=== PATIENT | female | born 1975 | race Caucasian/White ===

== ENCOUNTER 2017-10-04 08:59 | Inpatient (IN) ==
--- NOTE | 2017-10-04 09:23 | Emergency Department Note ---
Disposition Clinical Impression: Pancreatitis Qualifiers: Chronicity: acute Pancreatitis type: unspecified pancreatitis type Acute pancreatitis complication: unspecified Qualified Code(s): K85.90 - Acute pancreatitis without necrosis or infection, unspecified Disposition: Admitted As Inpatient Condition: Good Referrals: Francis Oneal DO [Primary Care Provider] - Forms: ED Satisfaction Letter, Work/School Release Time of Disposition: 10:50 Abdominal Pain HPI - General Chief Complaint: ED Abdominal Pain Stated Complaint: RUQ pain Time Seen by Provider: 10/04/17 09:07 Source: patient Mode of arrival: ambulatory Limitations: no limitations Nursing Notes Reviewed: Yes Vital Signs Reviewed: Yes - History of Present Illness HPI Narrative: 42-year-old female comes in complaining of right upper quadrant pain patient is status post gastric sleeve conrad placement in the last couple weeks in [place]. She complains of pain in right upper quadrant going through to her back. She was seen at the urgent care they did an x-ray and told her she had a kidney stone. Pt Subjective Complaint: abdominal pain Onset (ago): day(s) Consistency: constant Location: RUQ Pain Severity: moderate Pain Scale: 6 Quality: aching Radiation: back Migration to: no migration Improves with: nothing Worsens with: nothing Associated symptoms: Reports: nausea Treatments prior to arrival: none - Related Data Home Medications Medication Instructions Recorded Confirmed Losartan/Hydrochlorothiazide 1 tab PO DAILY 04/11/17 10/04/17 [Losartan-Hctz 100-25 mg Tab] amLODIPine [Norvasc] 5 mg PO DAILY 10/01/17 10/04/17 Cetirizine HCl [24Hour Allergy] 10 mg PO DAILY 10/04/17 10/04/17 Omeprazole [PriLOSEC] 40 mg PO DAILY 10/04/17 10/04/17 Allergies Allergy/AdvReac Type Severity Reaction Status Date / Time lisinopril AdvReac Cough Verified 10/04/17 11:05 All systems ED: reviewed and negative except as stated. Constitutional: Denies: fever, chills, weakness, weight change Eyes: Denies: eye pain, eye discharge, vision change ENT ED: Denies: ear pain, throat pain, dental pain, hearing loss, epistaxis, congestion, dysphagia Cardiovascular: Denies: chest pain, palpitations, dyspnea on exertion, edema, syncope Respiratory: Denies: cough, dyspnea, wheezes, hemoptysis, stridor Gastrointestinal: Reports: abdominal pain. Denies: nausea, vomiting, diarrhea, constipation, hematemesis, melena, hematochezia Genitourinary: Denies: dysuria, frequency, hematuria, discharge Musculoskeletal: Denies: back pain, neck pain, arthralgia, myalgia Integumentary: Denies: rash, abrasion, lesions Neurological: Denies: headache, weakness, numbness, paresthesias, confusion, abnormal gait, vertigo Psychiatric: Denies: anxiety, depression, suicidal thoughts, homicidal thoughts , auditory hallucinations, visual hallucinations Endocrine: Denies: fatigue Hematological/Lymphatic: Denies: easy bleeding, easy bruising Allergic/Immunologic: Denies: facial swelling, urticaria Abdominal Pain PMH - Past Medical History Medical history: Reports: GERD, hypertension Female Surgical History: Reports: , other Psychiatric history: Reports: no psych history - Social History Smoking status: Never smoker Alcohol use: Reports: none Drug use: Reports: none Physical Exam - General Limitations: no limitations General appearance: alert, in no apparent distress - Head Head exam: atraumatic, normocephalic, normal inspection - Eye Eye exam: Present: normal appearance, PERRL, EOMI - ENT ENT exam: normal exam, normal oropharynx, mucous membranes moist - Neck Neck exam: Present: normal inspection, full ROM, trachea midline - Chest Chest inspection: Present: normal inspection, symmetric chest wall rise - Respiratory Respiratory exam: Present: normal lung sounds bilaterally - Cardiovascular Cardiovascular exam: Present: regular rate, normal rhythm, normal heart sounds - Abdominal Exam Abdominal exam: Present: soft, tenderness. Absent: guarding, rebound Abdominal tenderness: Present: RUQ - Extremities Exam Extremities exam: Present: normal inspection, full ROM. Absent: tenderness, pedal edema - Expanded Lower Extremity Exam Neurovascular/Tendon exam: Absent: motor deficit, sensory deficit, tendon deficit Gait: observed and normal - Back Exam Back exam: Present: normal inspection, full ROM. Absent: tenderness - Neurological Exam Neurological exam: Present: alert, oriented X3 - Psychiatric Psychiatric exam: Present: normal affect, normal mood - Skin Skin exam: Present: warm, dry, intact, normal color Course - Reevaluation(s) Reevaluation #1: 42-year-old with a vertical sleeve gastrectomy a week ago. Comes in with right upper quadrant epigastric discomfort. CT shows evidence of pancreatitis. Will be admitted here. Time: 11:35 - Consultations Consultation #1: Discussed with Dr. Suarez, admit Time: 10:47 Consultation #2: Discussed with Dr. Eaton, surgeon in [place] at [phone]. Comfortable having the patient admitted here but will be available for consultation and/or transfer if the condition warrant. Time: 11:33 Vital Signs Temperature 98.2 F 10/04/17 09:01 Pulse Rate 102 10/04/17 09:01 Respiratory Rate 18 10/04/17 09:01 Blood Pressure 137/89 10/04/17 09:01 O2 Sat by Pulse Oximetry 96 10/04/17 09:01 Temperature 98.2 F 10/04/17 09:01 Pulse Rate 98 10/04/17 10:32 Respiratory Rate 17 10/04/17 10:32 Blood Pressure 145/93 10/04/17 10:32 O2 Sat by Pulse Oximetry 97 10/04/17 10:32 Oxygen Delivery Oxygen Delivery Room Air Abdominal Pain - Lab Data Result diagrams: 10/04/17 09:20 10/04/17 10:27 Lab Results 10/04/17 10/04/17 10/04/17 Range/Units 09:19 09:20 09:20 WBC 12.4 H (4.3-11.1) K/mcL RBC 4.17 (3.82-4.97) M/mcL Hgb 10.8 L (11.5-15.4) g/dL Hct 33.6 L (35.3-44.9) % MCV 80.6 L (83.0-100.0) fL MCH 25.9 L (28.0-33.3) pg MCHC 32.1 (31.6-35.5) g/dL RDW 16.1 H (11.5-14.5) % Plt Count 319 (140-400) K/mcL MPV 9.0 L (9.4-12.4) fL Immature Gran % 0.3 (0-4) % Seg Neutrophils % 78.8 % Lymphocytes % 10.8 % Monocytes % 8.2 % Eosinophils % 1.5 % Basophils % 0.4 % Neutrophils # 9.8 H (1.6-8.9) K/mcL Lymphocytes # 1.3 (0.6-4.6) K/mcL Monocytes # 1.0 (0.0-1.3) K/mcL Eosinophils # 0.2 (0.0-0.6) K/mcL Basophils # 0.1 (0.0-0.2) K/mcL Sodium (136-145) mEq/L Potassium (3.5-5.1) mEq/L Chloride (98-107) mEq/L Carbon Dioxide (23-29) mEq/L BUN (6-20) mg/dL Creatinine (0.60-1.20) mg/dL Est GFR ( Amer) (> 60) Est GFR (Non-Af Amer) (> 60) BUN/Creatinine Ratio (6-26) Glucose (70-105) mg/dL Calculated Osmolality (280-300) Lactic Acid (0.5-2.2) mmol/L Calcium (8.6-10.3) mg/dL Total Bilirubin (0.3-1.0) mg/dL Direct Bilirubin (0.0-0.2) mg/dL Indirect Bilirubin (0.0-1.2) mg/dL AST (13-39) Units/L ALT (7-52) Units/L Alkaline Phosphatase (34-104) Units/L Troponin I 0.03 (< 0.04) ng/mL Serum Total Protein (6.4-8.9) g/dL Albumin (3.5-5.7) g/dL Globulin (2.4-3.5) g/dL Albumin/Globulin Ratio (1.1-2.2) Amylase 26 L (29-103) Units/L Lipase 83 H (11-82) Units/L Urine Color (Yellow) Urine Clarity (Clear) Urine pH (5.0-8.0) pH Units Ur Specific [place] (1.010-1.025) Urine Protein (Neg-Trace) mg/dL Urine Glucose (UA) (Normal) mg/dL Urine Ketones (Negative) mg/dL Urine Blood (Negative) Urine Nitrite (Negative) Urine Bilirubin (Negative) Urine Urobilinogen (Normal) mg/dL Ur Leukocyte Esterase (Negative) Urine Microscopic RBC (0-3) per hpf Urine Microscopic WBC (0-3) per hpf Ur Squamous Epith Cells (None-Few) per lpf Urine Bacteria (None-Few) per hpf Hyaline Casts Ur Culture Indicated? (NO) Specimen Rejected 10/04/17 10/04/17 10/04/17 Range/Units 09:20 09:46 09:46 WBC (4.3-11.1) K/mcL RBC (3.82-4.97) M/mcL Hgb (11.5-15.4) g/dL Hct (35.3-44.9) % MCV (83.0-100.0) fL MCH (28.0-33.3) pg MCHC (31.6-35.5) g/dL RDW (11.5-14.5) % Plt Count (140-400) K/mcL MPV (9.4-12.4) fL Immature Gran % (0-4) % Seg Neutrophils % % Lymphocytes % % Monocytes % % Eosinophils % % Basophils % % Neutrophils # (1.6-8.9) K/mcL Lymphocytes # (0.6-4.6) K/mcL Monocytes # (0.0-1.3) K/mcL Eosinophils # (0.0-0.6) K/mcL Basophils # (0.0-0.2) K/mcL Sodium (136-145) mEq/L Potassium (3.5-5.1) mEq/L Chloride (98-107) mEq/L Carbon Dioxide (23-29) mEq/L BUN (6-20) mg/dL Creatinine (0.60-1.20) mg/dL Est GFR ( Amer) (> 60) Est GFR (Non-Af Amer) (> 60) BUN/Creatinine Ratio (6-26) Glucose (70-105) mg/dL Calculated Osmolality (280-300) Lactic Acid 1.0 (0.5-2.2) mmol/L Calcium (8.6-10.3) mg/dL Total Bilirubin (0.3-1.0) mg/dL Direct Bilirubin (0.0-0.2) mg/dL Indirect Bilirubin (0.0-1.2) mg/dL AST (13-39) Units/L ALT (7-52) Units/L Alkaline Phosphatase (34-104) Units/L Troponin I (< 0.04) ng/mL Serum Total Protein (6.4-8.9) g/dL Albumin (3.5-5.7) g/dL Globulin (2.4-3.5) g/dL Albumin/Globulin Ratio (1.1-2.2) Amylase (29-103) Units/L Lipase (11-82) Units/L Urine Color Dark Yellow (Yellow) Urine Clarity Hazy A (Clear) Urine pH 6.0 (5.0-8.0) pH Units Ur Specific [place] > 1.030 H (1.010-1.025) Urine Protein 30 H (Neg-Trace) mg/dL Urine Glucose (UA) Normal (Normal) mg/dL Urine Ketones >=160 H (Negative) mg/dL Urine Blood Negative (Negative) Urine Nitrite Negative (Negative) Urine Bilirubin Moderate H (Negative) Urine Urobilinogen Normal (Normal) mg/dL Ur Leukocyte Esterase Negative (Negative) Urine Microscopic RBC 5-15 H (0-3) per hpf Urine Microscopic WBC 5-15 H (0-3) per hpf Ur Squamous Epith Cells Many H (None-Few) per lpf Urine Bacteria Many H (None-Few) per hpf Hyaline Casts Test Not Performed Ur Culture Indicated? NO (NO) Specimen Rejected Hemolyzed 10/04/17 Range/Units 10:27 WBC (4.3-11.1) K/mcL RBC (3.82-4.97) M/mcL Hgb (11.5-15.4) g/dL Hct (35.3-44.9) % MCV (83.0-100.0) fL MCH (28.0-33.3) pg MCHC (31.6-35.5) g/dL RDW (11.5-14.5) % Plt Count (140-400) K/mcL MPV (9.4-12.4) fL Immature Gran % (0-4) % Seg Neutrophils % % Lymphocytes % % Monocytes % % Eosinophils % % Basophils % % Neutrophils # (1.6-8.9) K/mcL Lymphocytes # (0.6-4.6) K/mcL Monocytes # (0.0-1.3) K/mcL Eosinophils # (0.0-0.6) K/mcL Basophils # (0.0-0.2) K/mcL Sodium 136 (136-145) mEq/L Potassium 3.0 L (3.5-5.1) mEq/L Chloride 98 (98-107) mEq/L Carbon Dioxide 27 (23-29) mEq/L BUN 10 (6-20) mg/dL Creatinine 0.59 L (0.60-1.20) mg/dL Est GFR ( Amer) > 60 (> 60) Est GFR (Non-Af Amer) > 60 (> 60) BUN/Creatinine Ratio 17 (6-26) Glucose 100 (70-105) mg/dL Calculated Osmolality 281 (280-300) Lactic Acid (0.5-2.2) mmol/L Calcium 9.3 (8.6-10.3) mg/dL Total Bilirubin 0.4 (0.3-1.0) mg/dL Direct Bilirubin 0.2 (0.0-0.2) mg/dL Indirect Bilirubin 0.2 (0.0-1.2) mg/dL AST 15 (13-39) Units/L ALT 23 (7-52) Units/L Alkaline Phosphatase 83 (34-104) Units/L Troponin I (< 0.04) ng/mL Serum Total Protein 7.1 (6.4-8.9) g/dL Albumin 3.8 (3.5-5.7) g/dL Globulin 3.3 (2.4-3.5) g/dL Albumin/Globulin Ratio 1.2 (1.1-2.2) Amylase (29-103) Units/L Lipase (11-82) Units/L Urine Color (Yellow) Urine Clarity (Clear) Urine pH (5.0-8.0) pH Units Ur Specific [place] (1.010-1.025) Urine Protein (Neg-Trace) mg/dL Urine Glucose (UA) (Normal) mg/dL Urine Ketones (Negative) mg/dL Urine Blood (Negative) Urine Nitrite (Negative) Urine Bilirubin (Negative) Urine Urobilinogen (Normal) mg/dL Ur Leukocyte Esterase (Negative) Urine Microscopic RBC (0-3) per hpf Urine Microscopic WBC (0-3) per hpf Ur Squamous Epith Cells (None-Few) per lpf Urine Bacteria (None-Few) per hpf Hyaline Casts Ur Culture Indicated? (NO) Specimen Rejected - EKG Data EKG attestation: Yes I reviewed and interpreted this EKG. EKG shows normal: sinus rhythm Rate: normal Rhythm: NSR [place]/QRS: normal Interpretation: no acute changes
[2017-10-04 09:53] LABS: Bilirubin,Urine Moderate (Negative); Blood,Urine Negative (Negative); Color,Urine Dark Yellow (Yellow); Glucose,Urine (UA) Normal (Normal); Ketones,Urine >=160 mg/dL (Negative); Leukocyte Esterase,Urine Negative (Negative); Nitrite,Urine Negative (Negative); Protein,Urine 30 mg/dL (Neg-Trace); Specific Gravity,Urine > 1.030 (1.010-1.025); Urobilinogen,Urine Normal (Normal)
[2017-10-04 09:56] LABS: Bacteria,Urine Many per hpf (None-Few); Squamous Epithelial Cell,Urine Many per lpf (None-Few)
[2017-10-04 10:02] LABS: Clarity,Urine Hazy (Clear)
[2017-10-04 10:04] LABS: Basophils # 0.1 K/mcL (0.0-0.2); Basophils % 0.4 %; Eosinophils # 0.2 K/mcL (0.0-0.6); Eosinophils % 1.5 %; Hematocrit 33.6 % (35.3-44.9); Hemoglobin 10.8 g/dL (11.5-15.4); Immature Granulocytes % 0.3 % (0-4); Lymphocytes # 1.3 K/mcL (0.6-4.6); Lymphocytes % 10.8 %; Mean Corpuscular HGB Conc 32.1 g/dL (31.6-35.5); Mean Corpuscular Hemoglobin 25.9 pg (28.0-33.3); Mean Corpuscular Volume 80.6 fL (83.0-100.0); Monocytes % 8.2 %; Neutrophils # 9.8 K/mcL (1.6-8.9); Platelet Count 319 K/mcL (140-400); Red Blood Count 4.17 M/mcL (3.82-4.97); Red Cell Distribution Width 16.1 % (11.5-14.5); Segmented Neutrophils % 78.8 %
[2017-10-04 10:22] LABS: Amylase 26 Units/L (29-103); Lipase 83 Units/L (11-82)
[2017-10-04 11:00] LABS: Alanine Aminotransferase 23 Units/L (7-52); Albumin 3.8 g/dL (3.5-5.7); Albumin/Globulin Ratio 1.2 (1.1-2.2); Alkaline Phosphatase 83 Units/L (34-104); Aspartate Amino Transferase 15 Units/L (13-39); BUN/Creatinine Ratio 17 (6-26); Bilirubin,Direct 0.2 mg/dL (0.0-0.2); Bilirubin,Indirect 0.2 mg/dL (0.0-1.2); Bilirubin,Total 0.4 mg/dL (0.3-1.0); Blood Urea Nitrogen 10 mg/dL (6-20); Calcium 9.3 mg/dL (8.6-10.3); Carbon Dioxide 27 mEq/L (23-29); Chloride 98 mEq/L (98-107); Globulin 3.3 g/dL (2.4-3.5); Glucose 100 mg/dL (70-105); Osmolality,Calculated 281 (280-300); Sodium 136 mEq/L (136-145); Total Protein 7.1 g/dL (6.4-8.9); eGFR For African Americans > 60 (> 60); eGFR For Non-African Americans > 60 (> 60)
[2017-10-04] MEDS ORDERED: *HR* HYDROcodone/Acet 5/325 mg TABLET PO ONE (11:46)
[2017-10-04] MEDS ORDERED: Ondansetron ODT 4 MG TAB.RAPDIS SL ONE (11:46)
[2017-10-04] MEDS ORDERED: Naloxone 0.4 MG/ML INJ IVP PRN (12:21)
[2017-10-04] MEDS ORDERED: Ondansetron 4 MG/2 ML VIAL IVP PRN (12:37)
[2017-10-04] MEDS ORDERED: *HR* OxyCODONE Immed Rel 5 MG TABLET PO PRN (12:37)
[2017-10-04] MEDS ORDERED: *HR* Promethazine 25 MG/ML VIAL IVP PRN (12:37)
--- NOTE | 2017-10-04 12:56 | Internal Med History&Physical ---
Date of Encounter: 10/04/17 Time of Encounter: 11:25 Internal Medicine - H&P: HPI Chief complaint: RUQ pain Admitted From: Emergency Dept Plans for Post Hospital Care: Home History of present illness: Ms. Mari is a 42 year old female who presents with a 2 to 3-day history of epigastric and right upper quadrant abdominal pain radiating to her flank on the right side. She has had some protracted nausea and occasional vomiting. She has been unable to eat or drink due to the pain and nausea. She was seen in urgent care and was felt to have a kidney stone. However, because of worsening symptoms and persistent pain, she came to the ER. In the ER, she was diagnosed with pancreatitis by laboratory analysis and imaging. She was then admitted to the hospitalist service. Upon my assessment of the patient in the ER, she is feeling a lot better after some pain medication. She still has some pain rating to her right flank from her right upper quadrant. Of note, patient had recent gastric sleeve surgery in [place]. Dr. Kemp called her primary surgeon at [place] to inquire whether this pancreatitis may be secondary to her surgery. It was felt that it was likely not related to her surgery but her surgeon left his name name and number with Dr. Kemp to call with any questions and transfer if necessary. Gallbladder ultrasound was done in the ER and was unremarkable. Patient does not drink any alcohol whatsoever. I reviewed her medications and suspected Hydrochlorothiazide may be possible culprit for her pancreatitis. Additionally , she has never had her cholesterol level checked. Family history is pertinent for hyperlipidemia and she believes also for hypertriglyceridemia as well. I discussed with her the standard care treatment of pancreatitis with conservative measures including nothing by mouth, IV fluids, pain control, nausea control. Meanwhile, we will seek the etiology of her pancreatitis and consult GI best if necessary. She may warrant EGD given her chronic GERD. She is agreeable to the plan of care. Past Med Surg Social Fam HX - Past Medical History Attestation: Yes The following information was validated with the patient. Source: patient, old records reviewed Medical history: GERD, hypertension Psychiatric history: no psych history - Past Surgical History Surgical History: other (gastric sleeve; hiatal hernia) - Social History Smoking Status: Never smoker Smokeless Tobacco Status: No Alcohol use: none Drug use: none Occupational status: employed Current living situation: Home, With Family Activity Level: Independent ambulation Recent Out of Country Travel Within the Last 8 Weeks: No - Family History Mother Living Status: Still Living Father Living Status: Still Living (+FH hyperlipidemia and TG) Internal Medicine - H&P: Meds Losartan/Hydrochlorothiazide [Losartan-Hctz 100-25 mg Tab] 1 tab PO DAILY [History] amLODIPine [Norvasc] 5 mg PO DAILY 10/01/17 [History] Cetirizine HCl [24Hour Allergy] 10 mg PO DAILY 10/04/17 [History] Omeprazole [PriLOSEC] 40 mg PO DAILY 10/04/17 [History] 3 Allergy/AdvReac Type Severity Reaction Status Date / Time lisinopril AdvReac Cough Verified 10/04/17 11:05 All Systems PM: A 10-system review of systems was performed and is negative for pertinent findings except as documented above in the HPI. - Constitutional Constitutional: no chills, no fever(s), no night sweats - EENT Eyes: no blurry vision, no change in vision Ears: no ear pain, no tinnitus Nose, mouth and throat: no nasal congestion, no nasal discharge, no sinus pressure, no sore throat - Cardiovascular Cardiovascular ROS IM: no chest pain, no dyspnea, no orthopnea, no palpitations , no syncope - Respiratory Respiratory: no cough, no dyspnea, no hemoptysis, no dyspnea on exertion, no wheezing, no chest congestion, no excessive phlegm production, no change in phlegm color - Gastrointestinal Gastrointestinal: abdominal pain (RUQ), belching, heartburn, nausea, vomiting, no diarrhea, no hematemesis, no hematochezia, no melena - Genitourinary Genitourinary: no dysuria, no flank pain, no hematuria - Musculoskeletal Musculoskeletal ROS IM: no arthralgias, no joint swelling, no limited range of motion - Integumentary Integumentary IM: no rash, no jaundice - Neurological Neurological ROS: no dizziness, no focal weakness, no frequent falls, no headache(s) - Psychiatric Psychiatric: no anxiety, no depression - Endocrine Endocrine IM: no polydipsia, no polyuria - Hematologic/Lymphatic Hematologic/Lymphatic: no easy bruising - Allergic/Immunologic Allergic/Immunologic: GI upset with certain foods, no wheezing - Constitutional Vitals: Temp Pulse Resp BP Pulse Ox 98.2 F 98 17 149/92 97 10/04/17 09:01 10/04/17 12:05 10/04/17 12:05 10/04/17 12:05 10/04/17 12:05 General appearance: Present: cooperative, mild distress, A&O X 3, pleasant, answers questions appropriately - Head Head exam: Present: atraumatic, normal inspection - Eye Eye exam: Present: EOMI, normal appearance, PERRL. Absent: scleral icterus Pupils: Present: normal accommodation - ENT ENT exam: Present: mucous membranes dry, normal exam, normal oropharynx - Neck Neck exam general surgery: Present: full ROM, normal inspection, supple. Absent : tenderness, nuchal rigidity, thyromegaly - Respiratory Respiratory exam: Present: CTAB. Absent: chest wall tenderness, rales, respiratory distress, rhonchi, wheezes - Cardiovascular Cardiovascular exam: Present: RRR, +S1, +S2. Absent: diastolic murmur, systolic murmur - GI/Abdominal GI/Abdominal exam: Present: soft, tenderness (epigastric and RUQ), no peritoneal signs. Absent: guarding, hepatomegaly, mass, rebound, splenomegaly - Extremities Exam Extremities exam: Present: full ROM, normal capillary refill, warm, radial pulses palpable and symmetrical. Absent: calf tenderness, joint swelling, pedal edema, tenderness - Back Exam Back exam: Present: CVA tenderness (R) (referred pain from RUQ), normal inspection. Absent: CVA tenderness (L) - Neurological Exam Neurological exam: Present: alert, CN II-XII intact, oriented X3, no focal deficits, strengths equal and symetr throughout - Psychiatric Psychiatric exam: Present: normal affect, normal mood - Skin Skin exam: Present: dry, warm. Absent: rash Internal Med - H&P Results - Labs CBC & Chem 7: 10/04/17 09:20 10/04/17 10:27 - Diagnostic Studies CT scan - abdomen Status: image reviewed by me (pancreatitis) - Assessment and plan (1) Pancreatitis Current Visit: Yes Status: Acute Assessment and plan: 1. Suspect HCTZ as possible culprit for pancreatitis +/- hyperlipidemia. 2. Will keep npo, on IVF, nausea and pain control. 3. May need EGD for evaluation if above work-up negative. 4. If there is concern for post-operative complication of her gastric sleeve surgery, recommend contacting her surgeon in [place] as documented by Dr. Kemp in ER. Qualifiers: Chronicity: acute Pancreatitis type: unspecified pancreatitis type Acute pancreatitis complication: unspecified Qualified Code(s): K85.90 - Acute pancreatitis without necrosis or infection, unspecified (2) Chronic GERD Current Visit: Yes Status: Chronic Assessment and plan: 1. Will place on IV PPI. 2. Consult GI if need for EGD and poor symptom control. (3) Hypertension Current Visit: Yes Status: Chronic Assessment and plan: 1. Continue home meds but hold HCTZ because of pancreatitis. 2. Monitor BP and adjust meds as necessary. Qualifiers: Hypertension type: essential hypertension Qualified Code(s): I10 - Essential (primary) hypertension (4) DVT prophylaxis Current Visit: Yes Status: Acute Assessment and plan: 1. Heparin SQ.
[2017-10-04] MEDS: 0.9 % Sodium Chloride w KCl 20 MEQ/1,000 ML MLS IVC SCH ×2 (13:12→22:37)
[2017-10-04] MEDS: Pantoprazole 40 MG VIAL IVP SCH ×2 (13:12→18:01)
[2017-10-04] MEDS: *HR* HYDROcodone/Acet 5/325 mg TABLET PO PRN ×2 (16:30→22:37)
[2017-10-04] MEDS: *HR* Heparin 5,000 UNIT/ML VIAL SQ SCH (18:01)
[2017-10-05 06:16] LABS: Alanine Aminotransferase 16 Units/L (7-52); Albumin 3.2 g/dL (3.5-5.7); Albumin/Globulin Ratio 1.1 (1.1-2.2); Alkaline Phosphatase 70 Units/L (34-104); Aspartate Amino Transferase 12 Units/L (13-39); BUN/Creatinine Ratio 14 (6-26); Bilirubin,Total 0.4 mg/dL (0.3-1.0); Blood Urea Nitrogen 7 mg/dL (6-20); Calcium 8.6 mg/dL (8.6-10.3); Carbon Dioxide 23 mEq/L (23-29); Chloride 103 mEq/L (98-107); Chol/HDL Ratio 3.2 (0-4.9); Cholesterol 122 mg/dL (< 200); Glucose 86 mg/dL (70-105); HDL Cholesterol 38 mg/dL (40-59); LDL Cholesterol,Calculated 70 mg/dL (0-99); Magnesium 1.8 mg/dL (1.6-2.6); Osmolality,Calculated 283 (280-300); Potassium 3.4 mEq/L (3.5-5.1); Sodium 138 mEq/L (136-145); Total Protein 6.2 g/dL (6.4-8.9); Triglycerides 68 mg/dL (< 150); eGFR For African Americans > 60 (> 60); eGFR For Non-African Americans > 60 (> 60)
[2017-10-05 06:17] LABS: Basophils % 0.4 %; Eosinophils # 0.2 K/mcL (0.0-0.6); Eosinophils % 1.6 %; Hematocrit 30.5 % (35.3-44.9); Hemoglobin 9.6 g/dL (11.5-15.4); Immature Granulocytes % 0.3 % (0-4); Lymphocytes # 1.3 K/mcL (0.6-4.6); Lymphocytes % 12.7 %; Mean Corpuscular HGB Conc 31.5 g/dL (31.6-35.5); Mean Corpuscular Volume 82.7 fL (83.0-100.0); Mean Platelet Volume 9.3 fL (9.4-12.4); Monocytes # 0.8 K/mcL (0.0-1.3); Monocytes % 7.4 %; Neutrophils # 7.8 K/mcL (1.6-8.9); Platelet Count 271 K/mcL (140-400); Red Blood Count 3.69 M/mcL (3.82-4.97); Red Cell Distribution Width 16.3 % (11.5-14.5); Segmented Neutrophils % 77.6 %
[2017-10-05 06:22] LABS: INR 1.5; Prothrombin Time 16.4 Seconds (9.4-12.1)
[2017-10-05 06:25] LABS: Activated Partial Thrombo Time 28.6 Seconds (26.0-36.0)
[2017-10-05] MEDS: *HR* Heparin 5,000 UNIT/ML VIAL SQ SCH ×2 (06:42→17:45)
[2017-10-05] MEDS: Pantoprazole 40 MG VIAL IVP SCH ×2 (06:43→17:45)
[2017-10-05] MEDS: *HR* HYDROcodone/Acet 5/325 mg TABLET PO PRN ×3 (06:51→20:18)
[2017-10-05] MEDS: amLODIPine 5 MG TABLET PO SCH (08:18)
[2017-10-05] MEDS ORDERED: Bisacodyl 10 MG RECTAL SUPPOSITORY RC PRN (15:24)
[2017-10-05] MEDS ORDERED: Lidocaine -MPF 1% 5 ML AMPUL INFILT ONE (15:59)
[2017-10-05] MEDS: 0.9 % Sodium Chloride 1,000 ML IVC SCH ×2 (16:10→21:08)
--- NOTE | 2017-10-05 17:03 | Internal Med Progress Note ---
Date of Encounter: 10/05/17 Time of Encounter: 11:00 - Assessment and plan (1) Abdominal pain Current Visit: Yes Status: Acute Assessment and plan: Patient reports of no improvement in her generalized abdominal discomfort more concentrated at the epigastric region Patient without leukocytosis and has been afebrile with normal LFTs and slightly elevated lipase Patient with recent gastric sleeve on 09/15/[address] [facility] ( Dr. Keith Blankenship ) Patient also reports issues with constipation GI has been consulted and appreciate recommendations Qualifiers: Abdominal location: generalized Qualified Code(s): R10.84 - Generalized abdominal pain (2) Pancreatitis Current Visit: Yes Status: Acute Assessment and plan: Lipase on admission was [address] of the abdomen/pelvis showed findings consistent with acute pancreatitis with trace free fluid in the mid abdomen likely reactive in etiology. Will continue to hold hydrochlorothiazide and keep patient nothing by mouth with fluid resuscitation. GI following as above and appreciate recommendations Qualifiers: Chronicity: acute Pancreatitis type: unspecified pancreatitis type Acute pancreatitis complication: unspecified Qualified Code(s): K85.90 - Acute pancreatitis without necrosis or infection, unspecified (3) Constipation Current Visit: Yes Status: Acute Assessment and plan: Patient given MiraLAX earlier with no relief in symptoms so will try Dulcolax suppository Qualifiers: Constipation type: unspecified constipation type Qualified Code(s): K59.00 - Constipation, unspecified (4) Chronic GERD Current Visit: Yes Status: Chronic Assessment and plan: Will continue IV Protonix in case symptoms related to GERD Unclear if EGD warranted Appreciate any further recommendations from GI (5) Hypertension Current Visit: Yes Status: Chronic Assessment and plan: Continue home dose of amlodipine but hold HCTZ because of pancreatitis. Monitor BP Qualifiers: Hypertension type: essential hypertension Qualified Code(s): I10 - Essential (primary) hypertension (6) DVT prophylaxis Current Visit: Yes Status: Acute Assessment and plan: Subcutaneous heparin - Time Spent With Patient Total time spent is greater than 50% in coordination of care (as documented) at patient's floor/unit and/or counseling patient: - Subjective Interval history: Patient reports of no improvement in her generalized abdominal discomfort more concentrated at the epigastric region Patient without leukocytosis and has been afebrile with normal LFTs and slightly elevated lipase - Constitutional Vitals: Temp Pulse Resp BP Pulse Ox 98.8 F 89 17 108/70 98 10/05/17 15:16 10/05/17 15:16 10/05/17 15:16 10/05/17 15:16 10/05/17 15:16 General appearance: Present: cooperative, mild distress, A&O X 3, pleasant, answers questions appropriately. Absent: no acute distress - Respiratory Respiratory exam: Present: CTAB. Absent: accessory muscle use, rales, rhonchi, wheezes - Cardiovascular Cardiovascular exam: Present: RRR, +S1, +S2. Absent: diastolic murmur, gallop, rubs, systolic murmur - GI/Abdominal GI/Abdominal exam: Present: soft, tenderness (Generalized tenderness more pronounced at the epigastric region). Absent: distended, guarding, rigid Internal Medicine: Result - Labs CBC & Chem 7: 10/05/17 05:36 10/05/17 05:36 Labs: Short CBC 10/05/17 Range/Units 05:36 WBC 10.1 (4.3-11.1) K/mcL Hgb 9.6 L (11.5-15.4) g/dL Hct 30.5 L (35.3-44.9) % Plt Count 271 (140-400) K/mcL Neutrophils # 7.8 (1.6-8.9) K/mcL BMP 10/05/17 05:36 Sodium 138 Potassium 3.4 L Chloride 103 Carbon Dioxide 23 BUN 7 Creatinine 0.50 L Glucose 86 Calcium 8.6 Liver Function 10/05/17 Range/Units 05:36 Total Bilirubin 0.4 (0.3-1.0) mg/dL AST 12 L (13-39) Units/L ALT 16 (7-52) Units/L Alkaline Phosphatase 70 (34-104) Units/L Albumin 3.2 L (3.5-5.7) g/dL - ABG Interpretation ABG results: PT/INR, D-dimer PT 16.4 Seconds (9.4-12.1) H 10/05/17 05:36 Consult Discharge Plan - Plan Referrals: Francis Oneal DO [Primary Care Provider] -
[2017-10-06] MEDS: *HR* HYDROcodone/Acet 5/325 mg TABLET PO PRN ×4 (02:28→21:14)
[2017-10-06] MEDS: 0.9 % Sodium Chloride 1,000 ML IVC SCH ×4 (02:29→20:06)
[2017-10-06] MEDS: Pantoprazole 40 MG VIAL IVP SCH ×2 (06:14→18:25)
[2017-10-06] MEDS: *HR* Heparin 5,000 UNIT/ML VIAL SQ SCH (06:14)
[2017-10-06] MEDS: amLODIPine 5 MG TABLET PO SCH (09:04)
[2017-10-06 12:00] LABS: Basophils % 0.3 %; Eosinophils # 0.1 K/mcL (0.0-0.6); Eosinophils % 1.5 %; Hemoglobin 8.8 g/dL (11.5-15.4); Immature Granulocytes % 0.2 % (0-4); Lymphocytes # 1.2 K/mcL (0.6-4.6); Lymphocytes % 13.6 %; Mean Corpuscular HGB Conc 31.4 g/dL (31.6-35.5); Mean Corpuscular Hemoglobin 25.7 pg (28.0-33.3); Mean Corpuscular Volume 81.6 fL (83.0-100.0); Mean Platelet Volume 9.2 fL (9.4-12.4); Monocytes # 0.6 K/mcL (0.0-1.3); Monocytes % 7.1 %; Neutrophils # 6.8 K/mcL (1.6-8.9); Platelet Count 236 K/mcL (140-400); Red Blood Count 3.43 M/mcL (3.82-4.97); Red Cell Distribution Width 16.6 % (11.5-14.5); Segmented Neutrophils % 77.3 %
[2017-10-06] MEDS ORDERED: Bisacodyl 10 MG RECTAL SUPPOSITORY RC ONE (13:06)
[2017-10-06 14:21] LABS: BUN/Creatinine Ratio 7 (6-26); Blood Urea Nitrogen 4 mg/dL (6-20); Calcium 8.1 mg/dL (8.6-10.3); Carbon Dioxide 20 mEq/L (23-29); Chloride 100 mEq/L (98-107); Glucose 60 mg/dL (70-105); Lipase 46 Units/L (11-82); Osmolality,Calculated 265 (280-300); Potassium 3.3 mEq/L (3.5-5.1); Sodium 130 mEq/L (136-145); eGFR For African Americans > 60 (> 60); eGFR For Non-African Americans > 60 (> 60)
--- NOTE | 2017-10-06 15:02 | Gastroenterology Consult Note ---
<Itzel Hunter M - Last Filed: 10/06/17 14:55> Date of Encounter: 10/06/17 Time of Encounter: 12:15 - Assessment and plan (1) Pancreatitis Current Visit: Yes Status: Acute Assessment and plan: Pt is status post gastric sleeve. She ritter RUQ pain, CT shows acute pancreatitis vs postoperative changes. Gallbladder was unremarkable. Continue IVf, npo, may need HIDA scan if pain is persistent. Qualifiers: Chronicity: acute Pancreatitis type: unspecified pancreatitis type Acute pancreatitis complication: unspecified Qualified Code(s): K85.90 - Acute pancreatitis without necrosis or infection, unspecified (2) Chronic GERD Current Visit: Yes Status: Chronic Assessment and plan: Continue PPI, may needs EGD to rule out ulceration of anastamosis as cause for ruQ pain. - Time Spent With Patient Total time spent is greater than 50% in coordination of care (as documented) at patient's floor/unit and/or counseling patient: GI History of Present Illness - Data of Consult Patient: new to practice Consult date: 10/06/17 Requesting Physician: Ashish Crain - Consult Narrative Reason for consult: abdominal pain/pancreatitis History of present illness: Ms. Mari is a 42 year old female who is status post gastric sleeve procedure 2 weeks ago in [facility] with Dr Keith Blankenship ([phone]). She states she has been cleared to start pureed diet but has only been able to tolerate clear liquids. She is complaining of RuQ pain and nausea and vomiting. She states pain is radiating around to her back. Labs in ER suggest pancreatitis. Gallbladder ultrasound was done in the ER and was unremarkable. Patient does not drink any alcohol whatsoever. Family history is pertinent for hyperlipidemia and she believes also for hypertriglyceridemia as well. she denies any GERD at this time, she states nausea is better. She denies fever but admits to chills at home. She denies diarrhea, she has had constipation and has taken milk of magnesia at home. She denies bloody or tarry stools. She denies nsaids or anticoagulants. Past Med Surg Social Fam HX - Past Medical History Medical history: GERD, hypertension Psychiatric history: no psych history - Past Surgical History Surgical History: , other - Social History Smoking Status: Never smoker Smokeless Tobacco Status: No Alcohol use: none Drug use: none - Family History Mother Living Status: Still Living Father Living Status: Still Living (+FH hyperlipidemia and TG) Review of Systems: GI: as per [place] GENERAL: denies fever, has some chills EYES: denies yellow discoloration ENT: denies pain with swallowing or difficulty swallowing CARDIO: denies chest pain, palpitations RESP: No Shortness of breath with exertion : denies change in color of urine NEURO: denies any weakness HEME: Denies any bruising MS: denies joint pain, joint swelling or back pain. DERM: denies rash or itching PSYCH: Denies history of anxiety or depression - Constitutional Vitals: Temp Pulse Resp BP Pulse Ox 97.9 F 86 16 117/78 98 10/06/17 11:13 10/06/17 11:13 10/06/17 11:13 10/06/17 11:13 10/06/17 11:13 Exam: CONSTITUTIONAL:~alert, no acute distress.~HEAD:~normocephalic.~EYES:~no jaundice.~NECK:~no obvious swelling.~HEART:~regular rate and rhythm, no murmurs. ~LUNGS:~bilateral good air entry.~ABDOMEN:~non distended, soft, tender RUQ, laprosopic incisions well healed, no masses pulpable, no organomegaly.~RECTAL EXAM:~Deferred.~EXTREMITIES:~no clubbing, cyanosis or edema.~SKIN:~no stigmata of chronic liver disease.~NEUROLOGIC:~no obvious focal defect.~~~~ Results - Labs CBC & Chem 7: 10/06/17 09:48 10/06/17 12:32 Labs: Last Result Calcium 8.1 mg/dL (8.6-10.3) L 10/06/17 12:32 Troponin I 0.03 ng/mL (< 0.04) 10/04/17 09:19 Triglycerides 68 mg/dL (< 150) 10/05/17 05:36 Entire Visit Hgb 8.8 g/dL (11.5-15.4) L 10/06/17 09:48 Hct 28.0 % (35.3-44.9) L 10/06/17 09:48 PT 16.4 Seconds (9.4-12.1) H 10/05/17 05:36 Total Bilirubin 0.4 mg/dL (0.3-1.0) 10/05/17 05:36 AST 12 Units/L (13-39) L 10/05/17 05:36 ALT 16 Units/L (7-52) 10/05/17 05:36 Amylase 26 Units/L (29-103) L 10/04/17 09:20 Lipase 46 Units/L (11-82) 10/06/17 12:32 - ABG ABG results: PT/INR, D-dimer PT 16.4 Seconds (9.4-12.1) H 10/05/17 05:36 Consult Discharge Plan - Plan Referrals: Francis Oneal DO [Primary Care Provider] - 10/17/17 9:30 am <Maya Carey - Last Filed: 10/06/17 18:49> Date of Encounter: 10/06/17 Time of Encounter: 18:00 - Time Spent With Patient Total time spent is greater than 50% in coordination of care (as documented) at patient's floor/unit and/or counseling patient: GI History of Present Illness - Data of Consult Requesting Physician: Ashish Crain - Consult Narrative History of present illness: Ms. Mari is a 42 year old female - Constitutional Vitals: Temp Pulse Resp BP Pulse Ox 97.9 F 97 16 123/83 98 10/06/17 16:01 10/06/17 16:01 10/06/17 16:01 10/06/17 16:01 10/06/17 16:01 Results - Labs CBC & Chem 7: 10/06/17 09:48 10/06/17 12:32 Labs: Last Result Calcium 8.1 mg/dL (8.6-10.3) L 10/06/17 12:32 Troponin I 0.03 ng/mL (< 0.04) 10/04/17 09:19 Triglycerides 68 mg/dL (< 150) 10/05/17 05:36 Entire Visit Hgb 8.8 g/dL (11.5-15.4) L 10/06/17 09:48 Hct 28.0 % (35.3-44.9) L 10/06/17 09:48 PT 16.4 Seconds (9.4-12.1) H 10/05/17 05:36 Total Bilirubin 0.4 mg/dL (0.3-1.0) 10/05/17 05:36 AST 12 Units/L (13-39) L 10/05/17 05:36 ALT 16 Units/L (7-52) 10/05/17 05:36 Amylase 26 Units/L (29-103) L 10/04/17 09:20 Lipase 46 Units/L (11-82) 10/06/17 12:32 - ABG ABG results: PT/INR, D-dimer PT 16.4 Seconds (9.4-12.1) H 10/05/17 05:36 - Impressions Impressions Abdomen/Pelvis CT 10/06/17 15:28 IMPRESSION: 1. Portal vein thrombosis with increased ascites and inflammatory changes in the mesenteric fat. The thrombus extends into the superior mesenteric vein, and possibly the central aspect of the splenic vein. 2. Splenomegaly. 3. Heterogeneous enhancement of the uterus which could be related to underlying fibroids. D/ / 10/06/2017 16:54:08 Marino Alcala MD / nicole Interpreting Provider: Marino Alcala MD - Attending Attestation I have personally performed a face to face evaluation on this patient. I have reviewed and agree with the care plan. History and Exam by me shows: Patient seen does has mild upper abdominal tenderness on palpation. Assessment: Patient status post gastric sleeve now with acute portal venous thrombosis. Rec: IV heparin infusion discussed finding with Dr. Crain the hospitalist
[2017-10-06] MEDS ORDERED: Isovue-370 500 ML INFUS..BTL IV ONE (15:28)
[2017-10-06] MEDS ORDERED: *HR* Heparin 5,000 UNIT/ML VIAL IVP PRN (18:05)
[2017-10-06] MEDS ORDERED: *HR* Heparin 5,000 UNIT/ML VIAL IVP ONE (18:05)
--- NOTE | 2017-10-06 18:09 | Internal Med Progress Note ---
Date of Encounter: 10/06/17 Time of Encounter: 11:00 - Assessment and plan (1) Portal vein thrombosis Current Visit: Yes Status: Acute Assessment and plan: CT of the abdomen/pelvis was done which showed portal vein thrombosis with increased ascites and inflammatory changes in the mesenteric fat. Thrombosis was noted to extend into the superior mesenteric vein and possibly the central aspect of the splenic vein. Patient started on therapeutic heparin drip and will discuss about OAC as an outpatient in the morning (2) Abdominal pain Current Visit: Yes Status: Acute Assessment and plan: Secondary to the above Patient without leukocytosis and has been afebrile with normal LFTs and lipase levels now within normal limits Thrombosis suspected to be secondary to recent gastric sleeve on 09/15/17 at [facility] (Dr. Keith Blankenship ) GI following and appreciate recommendations Qualifiers: Abdominal location: generalized Qualified Code(s): R10.84 - Generalized abdominal pain (3) Pancreatitis Current Visit: Yes Status: Resolved Assessment and plan: Resolved; Will advance diet as tolerates Qualifiers: Chronicity: acute Pancreatitis type: unspecified pancreatitis type Acute pancreatitis complication: unspecified Qualified Code(s): K85.90 - Acute pancreatitis without necrosis or infection, unspecified (4) Constipation Current Visit: Yes Status: Acute Assessment and plan: Patient given MiraLAX with no relief in symptoms so will try Dulcolax suppository for the second time Qualifiers: Constipation type: unspecified constipation type Qualified Code(s): K59.00 - Constipation, unspecified (5) Chronic GERD Current Visit: Yes Status: Chronic Assessment and plan: Will continue IV Protonix in case symptoms related to GERD Unclear if EGD warranted Appreciate any further recommendations from GI (6) Hypertension Current Visit: Yes Status: Chronic Assessment and plan: Continue home dose of amlodipine but hold HCTZ because of pancreatitis. Monitor BP Qualifiers: Hypertension type: essential hypertension Qualified Code(s): I10 - Essential (primary) hypertension (7) DVT prophylaxis Current Visit: Yes Status: Acute Assessment and plan: Therapeutic heparin gtts as above - Time Spent With Patient Total time spent is greater than 50% in coordination of care (as documented) at patient's floor/unit and/or counseling patient: - Subjective Interval history: Patient with some improvement in her generalized abdominal discomfort more concentrated at the epigastric region Patient without leukocytosis and has been afebrile with normal LFTs and lipase levels now normal Patient noted to have portal vein thrombosis on CT of the abdomen/pelvis this afternoon. - Constitutional Vitals: Temp Pulse Resp BP Pulse Ox 97.9 F 97 16 123/83 98 10/06/17 16:01 10/06/17 16:01 10/06/17 16:01 10/06/17 16:01 10/06/17 16:01 General appearance: Present: cooperative, mild distress, A&O X 3, pleasant, answers questions appropriately. Absent: no acute distress - Respiratory Respiratory exam: Present: CTAB. Absent: accessory muscle use, rales, rhonchi, wheezes - Cardiovascular Cardiovascular exam: Present: RRR, +S1, +S2. Absent: diastolic murmur, gallop, rubs, systolic murmur - GI/Abdominal GI/Abdominal exam: Present: soft, tenderness (Patient with generalized tenderness on abdominal exam). Absent: guarding Internal Medicine: Result - Labs CBC & Chem 7: 10/06/17 09:48 10/06/17 12:32 Labs: Short CBC 10/06/17 Range/Units 09:48 WBC 8.9 (4.3-11.1) K/mcL Hgb 8.8 L (11.5-15.4) g/dL Hct 28.0 L (35.3-44.9) % Plt Count 236 (140-400) K/mcL Neutrophils # 6.8 (1.6-8.9) K/mcL BMP 10/06/17 12:32 Sodium 130 L Potassium 3.3 L Chloride 100 Carbon Dioxide 20 L BUN 4 L Creatinine 0.54 L Glucose 60 L Calcium 8.1 L - ABG Interpretation ABG results: PT/INR, D-dimer PT 16.4 Seconds (9.4-12.1) H 10/05/17 05:36 - Impressions Impressions Abdomen/Pelvis CT 10/06/17 15:28 IMPRESSION: 1. Portal vein thrombosis with increased ascites and inflammatory changes in the mesenteric fat. The thrombus extends into the superior mesenteric vein, and possibly the central aspect of the splenic vein. 2. Splenomegaly. 3. Heterogeneous enhancement of the uterus which could be related to underlying fibroids. D/ / 10/06/2017 16:54:08 Marino Alcala MD / [email or web address] Interpreting Provider: Marino Alcala MD Consult Discharge Plan - Plan Referrals: Francis Oneal DO [Primary Care Provider] - 10/17/17 9:30 am
[2017-10-06 18:56] LABS: Hemoglobin 9.3 g/dL (11.5-15.4); Mean Corpuscular HGB Conc 32.1 g/dL (31.6-35.5); Mean Corpuscular Hemoglobin 25.9 pg (28.0-33.3); Mean Corpuscular Volume 80.8 fL (83.0-100.0); Mean Platelet Volume 8.9 fL (9.4-12.4); Platelet Count 257 K/mcL (140-400); Red Blood Count 3.59 M/mcL (3.82-4.97); Red Cell Distribution Width 16.4 % (11.5-14.5)
[2017-10-06 19:03] LABS: INR 1.7; Prothrombin Time 18.3 Seconds (9.4-12.1)
[2017-10-06 19:06] LABS: Activated Partial Thrombo Time 29.1 Seconds (26.0-36.0)
[2017-10-06] MEDS: Heparin 25,000 UNIT/500 ML D5W 25,000 UNIT/500 ML BAG IVC SCH (20:09)
[2017-10-07 03:01] LABS: Activated Partial Thrombo Time 114.2 Seconds (26.0-36.0)
[2017-10-07] MEDS: *HR* HYDROcodone/Acet 5/325 mg TABLET PO PRN ×4 (03:25→20:58)
[2017-10-07 03:39] LABS: Heparin anti-factor XA UFH 0.64 IU/mL (0.30-0.70)
[2017-10-07] MEDS: 0.9 % Sodium Chloride 1,000 ML IVC SCH ×2 (05:11→15:08)
[2017-10-07] MEDS: Pantoprazole 40 MG VIAL IVP SCH ×2 (05:16→17:27)
[2017-10-07] MEDS: amLODIPine 5 MG TABLET PO SCH (09:17)
[2017-10-07 10:28] LABS: Basophils % 0.6 %; Eosinophils # 0.2 K/mcL (0.0-0.6); Eosinophils % 2.7 %; Hematocrit 26.9 % (35.3-44.9); Hemoglobin 8.6 g/dL (11.5-15.4); Immature Granulocytes % 0.3 % (0-4); Lymphocytes # 1.1 K/mcL (0.6-4.6); Lymphocytes % 15.4 %; Mean Corpuscular Hemoglobin 25.8 pg (28.0-33.3); Mean Corpuscular Volume 80.8 fL (83.0-100.0); Monocytes # 0.5 K/mcL (0.0-1.3); Monocytes % 7.6 %; Neutrophils # 5.2 K/mcL (1.6-8.9); Platelet Count 218 K/mcL (140-400); Red Blood Count 3.33 M/mcL (3.82-4.97); Red Cell Distribution Width 16.4 % (11.5-14.5); Segmented Neutrophils % 73.4 %
[2017-10-07 10:47] LABS: BUN/Creatinine Ratio 4 (6-26); Blood Urea Nitrogen 2 mg/dL (6-20); Calcium 8.3 mg/dL (8.6-10.3); Carbon Dioxide 22 mEq/L (23-29); Chloride 103 mEq/L (98-107); Glucose 95 mg/dL (70-105); Osmolality,Calculated 278 (280-300); Potassium 2.8 mEq/L (3.5-5.1); Sodium 136 mEq/L (136-145); eGFR For African Americans > 60 (> 60); eGFR For Non-African Americans > 60 (> 60)
[2017-10-07] MEDS: *HR* Heparin 5,000 UNIT/ML VIAL IVP PRN (11:30)
--- NOTE | 2017-10-07 11:30 | Gastroenterology Progress Note ---
<Itzel Hunter - Last Filed: 10/07/17 11:27> Date of Encounter: 10/07/17 Time of Encounter: 09:15 - Assessment and plan (1) Portal vein thrombosis Current Visit: Yes Status: Acute Assessment and plan: 42 year old female who presented with RUQ pain 2 weeks following gastric sleeve surgery. She was diagnosed with pancreatitis and started on IVF. CT abdomen yesterday showed portal vein thrombosis. She has been started on heparin drip. She has improved pain. Monitor labs. (2) Pancreatitis Current Visit: Yes Status: Resolved Assessment and plan: labs are improving Qualifiers: Chronicity: acute Pancreatitis type: unspecified pancreatitis type Acute pancreatitis complication: unspecified Qualified Code(s): K85.90 - Acute pancreatitis without necrosis or infection, unspecified (3) Chronic GERD Current Visit: Yes Status: Chronic Assessment and plan: Continue PPI, may needs EGD to rule out ulceration of anastamosis as cause for ruQ pain. - Time Spent With Patient Total time spent is greater than 50% in coordination of care (as documented) at patient's floor/unit and/or counseling patient: - Subjective Interval history: Patient is awake in bed. She states abdominal pain is improving. She denies nausea or vomiting but states she has been unable to tolerate more than a couple sips of fluids due to "feeling very full". - Constitutional Vitals: Temp Pulse Resp BP Pulse Ox 98.1 F 89 16 122/83 97 10/07/17 08:47 10/07/17 08:47 10/07/17 08:47 10/07/17 08:47 10/07/17 08:47 Exam: CONSTITUTIONAL:~alert, no acute distress.~HEAD:~normocephalic.~EYES:~no jaundice.~NECK:~no obvious swelling.~HEART:~regular rate and rhythm, no murmurs. ~LUNGS:~bilateral good air entry.~ABDOMEN:~non distended, soft, less tender, no masses pulpable, no organomegaly, obese, laprascopic scars well healed.~RECTAL EXAM:~Deferred.~EXTREMITIES:~no clubbing, cyanosis or edema.~SKIN:~no stigmata of chronic liver disease.~NEUROLOGIC:~no obvious focal defect.~~~~ Results - Labs CBC & Chem 7: 10/07/17 10:05 10/07/17 10:05 Labs: Last Result Calcium 8.3 mg/dL (8.6-10.3) L 10/07/17 10:05 Troponin I 0.03 ng/mL (< 0.04) 10/04/17 09:19 Triglycerides 68 mg/dL (< 150) 10/05/17 05:36 Entire Visit Hgb 8.6 g/dL (11.5-15.4) L 10/07/17 10:05 Hct 26.9 % (35.3-44.9) L 10/07/17 10:05 PT 18.3 Seconds (9.4-12.1) H 10/06/17 18:40 Total Bilirubin 0.4 mg/dL (0.3-1.0) 10/05/17 05:36 AST 12 Units/L (13-39) L 10/05/17 05:36 ALT 16 Units/L (7-52) 10/05/17 05:36 Amylase 26 Units/L (29-103) L 10/04/17 09:20 Lipase 46 Units/L (11-82) 10/06/17 12:32 - ABG ABG results: PT/INR, D-dimer PT 18.3 Seconds (9.4-12.1) H 10/06/17 18:40 - Impressions Impressions Abdomen/Pelvis CT 10/06/17 15:28 IMPRESSION: 1. Portal vein thrombosis with increased ascites and inflammatory changes in the mesenteric fat. The thrombus extends into the superior mesenteric vein, and possibly the central aspect of the splenic vein. 2. Splenomegaly. 3. Heterogeneous enhancement of the uterus which could be related to underlying fibroids. D/ / 10/06/2017 16:54:08 Marino Alcala MD / nicole Interpreting Provider: Marino Alcala MD Consult Discharge Plan - Plan Referrals: Francis Oneal DO [Primary Care Provider] - 10/17/17 9:30 am <Maya Carey - Last Filed: 10/07/17 13:17> Date of Encounter: 10/07/17 - Time Spent With Patient Total time spent is greater than 50% in coordination of care (as documented) at patient's floor/unit and/or counseling patient: - Constitutional Vitals: Temp Pulse Resp BP Pulse Ox 98.1 F 89 16 122/83 97 10/07/17 08:47 10/07/17 08:47 10/07/17 08:47 10/07/17 08:47 10/07/17 08:47 Results - Labs CBC & Chem 7: 10/07/17 10:05 10/07/17 10:05 Labs: Last Result Calcium 8.3 mg/dL (8.6-10.3) L 10/07/17 10:05 Troponin I 0.03 ng/mL (< 0.04) 10/04/17 09:19 Triglycerides 68 mg/dL (< 150) 10/05/17 05:36 Entire Visit Hgb 8.6 g/dL (11.5-15.4) L 10/07/17 10:05 Hct 26.9 % (35.3-44.9) L 10/07/17 10:05 PT 18.3 Seconds (9.4-12.1) H 10/06/17 18:40 Total Bilirubin 0.4 mg/dL (0.3-1.0) 10/07/17 10:05 AST 9 Units/L (13-39) L 10/07/17 10:05 ALT 13 Units/L (7-52) 10/07/17 10:05 Amylase 26 Units/L (29-103) L 10/04/17 09:20 Lipase 46 Units/L (11-82) 10/06/17 12:32 - ABG ABG results: PT/INR, D-dimer PT 18.3 Seconds (9.4-12.1) H 10/06/17 18:40 - Impressions Impressions Abdomen/Pelvis CT 10/06/17 15:28 IMPRESSION: 1. Portal vein thrombosis with increased ascites and inflammatory changes in the mesenteric fat. The thrombus extends into the superior mesenteric vein, and possibly the central aspect of the splenic vein. 2. Splenomegaly. 3. Heterogeneous enhancement of the uterus which could be related to underlying fibroids. D/ / 10/06/2017 16:54:08 Marino Alcala MD / nicole Interpreting Provider: Marino Alcala MD - Attending Attestation I have personally performed a face to face evaluation on this patient. I have reviewed and agree with the care plan. History and Exam by me shows: Patient seen at the bedside. Abdominal pain is better on examination abdomen is mildly tender. Assessment: Patient with portal venous thrombosis. Recommendation: Continue IV heparin once pain resolved and we should start her on anticoagulants such as Coumadin or Xeralto.. Patient will need anticoagulant for a minimum of 6 months. sHe may benefit from hematology input for possible hypercoagulable workup
[2017-10-07 12:37] LABS: Alanine Aminotransferase 13 Units/L (7-52); Albumin 2.9 g/dL (3.5-5.7); Albumin/Globulin Ratio 0.9 (1.1-2.2); Alkaline Phosphatase 67 Units/L (34-104); Aspartate Amino Transferase 9 Units/L (13-39); Bilirubin,Direct 0.2 mg/dL (0.0-0.2); Bilirubin,Indirect 0.2 mg/dL (0.0-1.2); Bilirubin,Total 0.4 mg/dL (0.3-1.0); Globulin 3.2 g/dL (2.4-3.5); Total Protein 6.1 g/dL (6.4-8.9)
[2017-10-07] MEDS: Heparin 25,000 UNIT/500 ML D5W 25,000 UNIT/500 ML BAG IVC SCH (14:22)
--- NOTE | 2017-10-07 17:39 | Electrocardiograph Report ---
[place] [id number] Test Date: 2017-10-04 Pat Name: Bhumi Mari Department: 104 Room: 3A Gender: F Groundman/Lineman: BABAR : 1975 Requested By: Isaiah Kemp Order Number: [id number] Reading MD: Lily Casas Measurements Intervals [place] Rate: 94 P: 34 NE: 169 QRS: 8 QRSD: 97 T: 18 QT: 343 QTc: 395 Interpretive Statements SINUS RHYTHM Electronically Signed On 10-07-2017 17:37:43 EDT by Lily Casas
--- NOTE | 2017-10-07 19:10 | Internal Med Progress Note ---
Date of Encounter: 10/07/17 Time of Encounter: 11:00 - Assessment and plan (1) Portal vein thrombosis Current Visit: Yes Status: Acute Assessment and plan: CT of the abdomen/pelvis was done which showed portal vein thrombosis with increased ascites and inflammatory changes in the mesenteric fat. Thrombosis was noted to extend into the superior mesenteric vein and possibly the central aspect of the splenic vein. Discussed with patient about OAC and she has decided on Xarelto; currently being priced check for affordability Will continue heparin drip (2) Abdominal pain Current Visit: Yes Status: Acute Assessment and plan: Secondary to the above Patient without leukocytosis and has been afebrile with normal LFTs and lipase levels now within normal limits Qualifiers: Abdominal location: generalized Qualified Code(s): R10.84 - Generalized abdominal pain (3) Pancreatitis Current Visit: Yes Status: Resolved Assessment and plan: Resolved; Will advance diet as tolerates Qualifiers: Chronicity: acute Pancreatitis type: unspecified pancreatitis type Acute pancreatitis complication: unspecified Qualified Code(s): K85.90 - Acute pancreatitis without necrosis or infection, unspecified (4) Constipation Current Visit: Yes Status: Acute Assessment and plan: Resolved; continue to monitor Qualifiers: Constipation type: unspecified constipation type Qualified Code(s): K59.00 - Constipation, unspecified (5) Chronic GERD Current Visit: Yes Status: Chronic Assessment and plan: Will continue IV Protonix in case symptoms related to GERD Unclear if EGD warranted Appreciate any further recommendations from GI (6) Hypertension Current Visit: Yes Status: Chronic Assessment and plan: Continue home dose of amlodipine but hold HCTZ because of pancreatitis. Monitor BP Qualifiers: Hypertension type: essential hypertension Qualified Code(s): I10 - Essential (primary) hypertension (7) DVT prophylaxis Current Visit: Yes Status: Acute Assessment and plan: Therapeutic heparin gtts as above - Time Spent With Patient Total time spent is greater than 50% in coordination of care (as documented) at patient's floor/unit and/or counseling patient: - Subjective Interval history: Patient with improvement in her generalized abdominal discomfort Patient's constipation has resolved - Constitutional Vitals: Temp Pulse Resp BP Pulse Ox 98.3 F 85 15 121/77 98 10/07/17 15:14 10/07/17 15:14 10/07/17 15:14 10/07/17 15:14 10/07/17 15:14 General appearance: Present: cooperative, mild distress, A&O X 3, pleasant, answers questions appropriately. Absent: no acute distress - Respiratory Respiratory exam: Present: CTAB. Absent: accessory muscle use, rales, rhonchi, wheezes - Cardiovascular Cardiovascular exam: Present: RRR, +S1, +S2. Absent: diastolic murmur, gallop, rubs, systolic murmur - GI/Abdominal GI/Abdominal exam: Present: tenderness Internal Medicine: Result - Labs CBC & Chem 7: 10/07/17 10:05 10/07/17 10:05 Labs: Short CBC 10/07/17 Range/Units 10:05 WBC 7.1 (4.3-11.1) K/mcL Hgb 8.6 L (11.5-15.4) g/dL Hct 26.9 L (35.3-44.9) % Plt Count 218 (140-400) K/mcL Neutrophils # 5.2 (1.6-8.9) K/mcL BMP 10/07/17 10:05 Sodium 136 Potassium 2.8 L Chloride 103 Carbon Dioxide 22 L BUN 2 L Creatinine 0.48 L Glucose 95 Calcium 8.3 L Liver Function 10/07/17 Range/Units 10:05 Total Bilirubin 0.4 (0.3-1.0) mg/dL Direct Bilirubin 0.2 (0.0-0.2) mg/dL AST 9 L (13-39) Units/L ALT 13 (7-52) Units/L Alkaline Phosphatase 67 (34-104) Units/L Albumin 2.9 L (3.5-5.7) g/dL - ABG Interpretation ABG results: PT/INR, D-dimer PT 18.3 Seconds (9.4-12.1) H 10/06/17 18:40 Consult Discharge Plan - Plan Referrals: Francis Oneal DO [Primary Care Provider] - 10/17/17 9:30 am
[2017-10-08] MEDS: *HR* Heparin 5,000 UNIT/ML VIAL IVP PRN (01:34)
[2017-10-08] MEDS: 0.9 % Sodium Chloride 1,000 ML IVC SCH ×2 (01:44→11:13)
[2017-10-08] MEDS: *HR* HYDROcodone/Acet 5/325 mg TABLET PO PRN (05:40)
[2017-10-08] MEDS: Pantoprazole 40 MG VIAL IVP SCH (05:41)
[2017-10-08] MEDS: Heparin 25,000 UNIT/500 ML D5W 25,000 UNIT/500 ML BAG IVC SCH (07:48)
[2017-10-08 09:19] LABS: Basophils % 0.4 %; Eosinophils # 0.2 K/mcL (0.0-0.6); Eosinophils % 2.6 %; Hematocrit 27.9 % (35.3-44.9); Hemoglobin 8.8 g/dL (11.5-15.4); Immature Granulocytes % 0.4 % (0-4); Lymphocytes # 1.6 K/mcL (0.6-4.6); Lymphocytes % 22.7 %; Mean Corpuscular HGB Conc 31.5 g/dL (31.6-35.5); Mean Corpuscular Hemoglobin 25.5 pg (28.0-33.3); Mean Corpuscular Volume 80.9 fL (83.0-100.0); Monocytes # 0.5 K/mcL (0.0-1.3); Monocytes % 7.6 %; Neutrophils # 4.6 K/mcL (1.6-8.9); Platelet Count 213 K/mcL (140-400); Red Blood Count 3.45 M/mcL (3.82-4.97); Red Cell Distribution Width 16.5 % (11.5-14.5); Segmented Neutrophils % 66.3 %
[2017-10-08 09:48] LABS: BUN/Creatinine Ratio 5 (6-26); Blood Urea Nitrogen 2 mg/dL (6-20); Calcium 8.3 mg/dL (8.6-10.3); Carbon Dioxide 24 mEq/L (23-29); Chloride 102 mEq/L (98-107); Glucose 99 mg/dL (70-105); Osmolality,Calculated 276 (280-300); Potassium 3.4 mEq/L (3.5-5.1); Sodium 135 mEq/L (136-145); eGFR For African Americans > 60 (> 60); eGFR For Non-African Americans > 60 (> 60)
[2017-10-08] MEDS: amLODIPine 5 MG TABLET PO SCH (11:12)
--- NOTE | 2017-10-08 12:03 | Discharge Summary ---
- NOTES TO OUTPATIENT PROVIDER Notes to Outpatient Provider: Continue Xarelto for 6 months and then initiate thrombophilia workup after completion Date of Encounter: 10/08/17 Time of Encounter: 10:00 - Discharge Diagnosis (1) Portal vein thrombosis Priority: Primary Status: Acute (2) Abdominal pain Priority: Primary Status: Acute Qualifiers: Abdominal location: generalized Qualified Code(s): R10.84 - Generalized abdominal pain (3) Pancreatitis Priority: Secondary Status: Resolved Qualifiers: Chronicity: acute Pancreatitis type: unspecified pancreatitis type Acute pancreatitis complication: unspecified Qualified Code(s): K85.90 - Acute pancreatitis without necrosis or infection, unspecified (4) Constipation Priority: Secondary Status: Acute Qualifiers: Constipation type: unspecified constipation type Qualified Code(s): K59.00 - Constipation, unspecified (5) Chronic GERD Priority: Secondary Status: Chronic (6) Hypertension Priority: Secondary Status: Chronic Qualifiers: Hypertension type: essential hypertension Qualified Code(s): I10 - Essential (primary) hypertension Hospital course: Patient is a 43-year-old female with recent history of gastric sleeve who presents to the ER on 10/07/17 due to abdominal pain. She reported of 2-3 day history of epigastric and right upper quadrant abdominal pain radiating to her flank on the right side. She has had some protracted nausea and occasional vomiting. She has been unable to eat or drink due to the pain and nausea. She was seen in urgent care and was felt to have a kidney stone. However, because of worsening symptoms and persistent pain, she came to the ER. In the ER, she was found to have slightly elevated lipase and findings suggestive of pancreatitis on CT. Of note, patient had recent gastric sleeve surgery in [place]. Dr. Kemp called her primary surgeon at [place] to inquire whether this pancreatitis may be secondary to her surgery. It was felt that it was likely not related to her surgery (Dr. Kemp). Gallbladder ultrasound was done in the ER and was unremarkable. Patient was admitted to medical surgical floor for management of acute pancreatitis. During patients hospital stay, her pancreatitis resolved with IV fluids but abdominal pain persisted. CT of the abdomen was done which showed portal vein thrombosis with increased ascites and inflammatory changes in the mesenteric fat. Thrombosis was noted to extend into the superior mesenteric vein and possibly the central aspect of the splenic vein. Patient was placed on heparin drip and abdominal discomfort gradually improved. Discussed with patient about OAC therapy as an outpatient and she has decided on Xarelto. Patient will be discharged to take Xarelto daily for 6 months and to follow-up with hematology oncology. - Time Spent with Patient Total time spent providing and/or coordinating discharge services: Less than 30 minutes - Discharge Medications Prescriptions: Rivaroxaban [Xarelto] 15 mg PO BID #42 tablet Rivaroxaban [Xarelto] 20 mg PO DAILY #30 tablet Home Medications: Losartan/Hydrochlorothiazide [Losartan-Hctz 100-25 mg Tab] 1 tab PO DAILY [History] amLODIPine [Norvasc] 5 mg PO DAILY 10/01/17 [History] Cetirizine HCl [24Hour Allergy] 10 mg PO DAILY 10/04/17 [History] Omeprazole [PriLOSEC] 40 mg PO DAILY 10/04/17 [History] Rivaroxaban [Xarelto] 15 mg PO BID #42 tablet 10/08/17 [Rx] Rivaroxaban [Xarelto] 20 mg PO DAILY #30 tablet 10/08/17 [Rx] Allergies/Adverse Reactions: 3 Allergy/AdvReac Type Severity Reaction Status Date / Time lisinopril AdvReac Cough Verified 10/04/17 11:05 Date of admission: 10/07/17 19:07 Primary care physician: Francis Oneal, - Constitutional Vitals: Temp Pulse Resp BP Pulse Ox 98.1 F 75 14 108/76 96 10/08/17 06:56 10/08/17 06:56 10/08/17 06:56 10/08/17 06:56 10/08/17 06:56 General appearance: Present: cooperative, mild distress, A&O X 3, pleasant, answers questions appropriately. Absent: no acute distress - Respiratory Respiratory exam: Present: CTAB. Absent: accessory muscle use, rales, rhonchi, wheezes - Cardiovascular Cardiovascular exam: Present: RRR, +S1, +S2. Absent: diastolic murmur, gallop, rubs, systolic murmur - GI/Abdominal GI/Abdominal exam: Present: normal bowel sounds, soft, no peritoneal signs. Absent: distended, tenderness - Patient Status Disposition: Home, Self-Care Condition: Good - Discharge Instructions Follow Up With: Francis Oneal DO [Primary Care Provider] - 10/17/17 9:30 am
[2017-10-08] MEDS ORDERED: *HR* Rivaroxaban 15 MG TABLET PO STA ×2 (12:04→12:18)
[2017-10-08 12:10] VITALS: BP 122/83
== END 2017-10-08 12:57 | disposition home or self-care (01) | DRG 441 ==
LOC: 3ANU 08:59 → EMEROO 08:59 → SUATTDRO 11:48 → 3ANU 12:52
PROVIDERS: ADMIT Pediatrics; ATTEND Hospitalist